=== PATIENT | male | born 1975 | race Caucasian/White ===

== ENCOUNTER 2018-06-11 12:10 | Emergency (ER) | payer BC ==
--- NOTE | 2018-06-11 12:40 | ED.PDOC ---
History of Present Illness - General Chief Complaint: Lower Extremity Injury Stated Complaint: L ankle injury Time Seen by Provider: 06/11/18 12:36 Source: patient Exam Limitations: no limitations - History of Present Illness Initial Comments: Shane Fan 42 y/o male came to ER with dull left foot pain after jumping over a fence looking for his dog after landing to the ground felt pain symptoms..Denies any other injuries else where.No history of fall.Pain on weight bearing left foot. Occurred: just prior to arrival Pain - Lower Extremity: moderate: Left Foot Method of Injury: other - see hpi Improving Factors: rest Worsening Factors: movement Associated Symptoms: pain Allergies/Adverse Reactions: Allergies NO KNOWN ALLERGY Allergy (Verified 06/11/18 12:26) Home Medications: Ambulatory Orders Tramadol HCl 50 mg PO Q4HR #20 tab 06/11/18 Review of Systems - Review of Systems Musculoskeletal: States: see HPI All other Systems: Reviewed and Negative, No Change from Baseline Past Medical History (General) - Patient Medical History Hx Stroke: No Hx Congestive Heart Failure: No Hx Diabetes: No Hx MRSA: No Surgical History: appendectomy, other - hand surgery shoulder - Vaccination History Hx Tetanus, Diphtheria Vaccination: Yes - 2017 Hx Influenza Vaccination: No Hx Pneumococcal Vaccination: No - Social History Hx Tobacco Use: Yes Hx Alcohol Use: Yes - Infrequent Family Medical History - Family History Father Family History: Unknown Living Status: Physical Exam - Physical Exam General Appearance: Alert, Comfortable, No apparent distress Eyes, Ears, Nose, Throat: normal ENT inspection Neck: non-tender, full range of motion, supple Cardiovascular/Respiratory: regular rate, rhythm, no M/R/G, normal peripheral pulses, normal breath sounds Gastrointestinal/Abdominal: non-tender, no organomegaly Back: normal inspection, no CVA tenderness, no vertebral tenderness Thigh/Hip: normal inspection, non-tender, no evidence of injury Leg: normal inspection, non-tender, no evidence of injury Knee: normal inspection, non-tender, no evidence of injury Ankle: normal inspection, non-tender, no evidence of injury Foot: bone tenderness - left foot, soft tissue tenderness - left foot Neuro/Tendon: normal sensation, normal motor functions, normal tendon functions, responds to pain Mental Status: alert, oriented x 3 Skin: normal color, warm/dry Progress - Progress Progress: 06/11/18 12:43 Vital Signs - 8 hr 06/11/18 12:20 Temperature 99.5 F Pulse Rate [ 94 H Left Radial] Respiratory 18 Rate Blood Pressure 154/95 [Left Arm] O2 Sat by Pulse 96 Oximetry - EKG/XRAY/CT XRAY: left foot no fracture Departure - Departure Clinical Impression: Foot pain, left Contusion of foot, left Qualifiers: Encounter type: initial encounter Qualified Code(s): S90.32XA - Contusion of left foot, initial encounter Time of Disposition: 13:10 Disposition: Discharge to Home or Self Care Condition: Fair Departure Forms: ED Discharge - Pt. Copy, Patient Portal Self Enrollment Instructions: Contusion (DC) Referrals: LIZETH SCHWARZ MD [Primary Care Provider] - 1-2 Weeks Prescriptions: Tramadol HCl 50 mg PO Q4HR #20 tab Home Medications: Ambulatory Orders Tramadol HCl 50 mg PO Q4HR #20 tab 06/11/18 Additional Instructions: Follow up with primary Md 20 Jun 2018 for recheck as needed
[2018-06-11 13:03] VITALS: TEMP 99.5
[2018-06-11 13:27] VITALS: BP 128/94
[2018-06-11 13:37] VITALS: O2SAT 98
--- NOTE | 2018-06-12 14:35 | RAD ---
EXAM: XR Left Ankle Complete, 3 or More Views CLINICAL HISTORY: 42 years old and is Male; radiating pain upwards with weight bearing TECHNIQUE: Frontal, lateral and oblique views of the left ankle. COMPARISON: No relevant prior studies available. FINDINGS: Limitations: None. Bones/joints: There is mild spurring of the medial and lateral malleoli. No fracture. No dislocation. Soft tissues: Soft tissue swelling most prominent medially. IMPRESSION: There is soft tissue swelling without acute bony abnormality. Electronically signed by: Mirela Braxton MD 06/11/2018 12:57 PM CDT
== END 2018-06-11 13:23 | disposition home or self-care (01) ==
LOC: ER 12:10
DX: S90.32XA Contusion of left foot, initial encounter (principal); X50.9XXA Other and unspecified overexertion or strenuous movements or postures, initial encounter; Z87.891 Personal history of nicotine dependence; Y92.9 Unspecified place or not applicable